=== PATIENT | female | born 1950 | race Hispanic/Latino ===

== ENCOUNTER 2022-04-02 11:22 | Observation (INO) | payer MEDICARE, MEDICAID ==
[2022-04-02] VITALS (18 sets, daily range): BP systolic 114–177; BP diastolic 49–95
[~2022-04-02] VITALS: Ht 172.7 cm; Wt 90.5 kg
[2022-04-02] MEDS ORDERED: DEXTROSE 10%-WATER IV SOLUTION 1,000 ML IV ONE ×3 (11:26→14:00)
[2022-04-02] MEDS ORDERED: DEXTROSE 50%-WATER SYRINGE IV STA ×2 (12:01→14:50)
[2022-04-02] MEDS ORDERED: DEXTROSE 50%-WATER SYRINGE IV ONE ×2 (12:03→14:49)
--- NOTE | 2022-04-02 12:10 | ER.PDOC ---
General Chief Complaint: General Complaint Stated Complaint: LOW BLOOD SUGAR Time seen by MD: 12:00 Source: family Exam Limitations: clinical condition History of Present Illness Initial Comments Patient received subcu insulin but no food after that, became unresponsive, paramedics found her blood sugar to be 20- she responded to D50 water and she had a second episode of loss of consciousness, sugar was low again this time patient was brought to ER Timing/Duration: 4-6 hours Character of AMS: unresponsive Context: [facility], chronic dementia Decreased Ability to Stand: weak Associated Symptoms: recent illness Prior symptoms/Treatment: Similar symptoms previous Past Medical History Medical History: congestive heart failure, diabetes, hypertension Surgical History: no surgical history Social History Alcohol Use: none Drug Use: none Reviewed Nursing Reviewed: Vital Signs, Abn. Noted Review of Systems All Other Systems: Reviewed and Negative Physical Exam General Appearance: lethargic HEENT: no apparent trauma, EOM's intact, no nystagmus, PERRL, ENT inspection nml, pharynx nml, airway intact, oral exam nml Neuro/Psych: nml mood/affect, abnml response to command, disoriented to person, disoriented to time, other Cerebellar: abnml [id number], other Peripheral Exam: weakness Neck: supple, non-tender, no carotid bruit Respiratory: no resp distress, breath sounds nml CVS: reg rate & rhythm, heart sounds nml Abdomen: non-tender, no organomegaly, no distention Skin: color nml, no rash, warm/dry Extremities: non-tender, nml ROM, no pedal edema Results/Orders Results/Orders Orders - SHAGUFTA PEREZ MD Clostridium Difficile Panel (04/02/22 11:48) Cbc With Auto Diff (04/02/22 11:48) Comprehensive Metabolic Panel (04/02/22 11:48) Creatine Kinase (04/02/22 11:48) Creatine Kinase Mb (04/02/22 11:48) Probnp B-Type Fittings Finisher (04/02/22 11:48) PT (04/02/22 11:48) Partial Thromboplastin Time. (04/02/22 11:48) Xr Chest 1v (04/02/22 11:48) Ekg-Routine (04/02/22 11:48) Troponin I High Sensitivity (04/02/22 11:48) Urinalysis (04/02/22 11:59) Lactic Acid(Ml) (04/02/22 11:59) Venous Blood Gas (04/02/22 11:59) Acetone,Serum (Ml) (04/02/22 11:59) Dextrose 50 % In Water (Dextrose 50%-Mojgan (04/02/22 12:01) Dextrose 50 % In Water (Dextrose 50%-Mojgan (04/02/22 12:03) Ct Head Wo Contrast (04/02/22 12:03) Dextrose 10 % In Water (Dextrose 10%-Mojgan (04/02/22 12:30) Ammonia (04/02/22 12:18) Ipratropium/Albuterol Sulfate (Duo 0.5-3 (04/02/22 12:49) Piperacillin Sodium/Tazobactam (Zosyn 4. (04/02/22 13:30) Urine Culture (04/02/22 13:10) Vital Signs Date Time Temp Pulse Resp B/P (MAP) Pulse Ox O2 Delivery O2 Flow Rate FiO2 04/02/22 11: 98.3 51 18 124/66 (85) 100 Room Air* 0 21 04/02/22 11:22 98.3 51 18 100 04/02/22 11: 98.3 51 18 Administered Medications Medications (Trade) Dose Ordered Sig/Neeraj Route PRN Reason Start Time Stop Time Status Last Admin Dose Admin Dextrose 1,000 ml @ 0 mls/hr Q0M ONCE IV 04/02/22 12:30 04/02/22 12:31 UNV 04/02/22 12:14 70 MLS/HR Dextrose (Dextrose 50%-Water Syringe) 50 ml STAT STAT IV 04/02/22 12:01 04/02/22 12:03 DC 04/02/22 12:07 50 ML Laboratory Tests Test 04/02/22 12:15 04/02/22 12:16 04/02/22 13:08 04/02/22 13:10 POC Glucose 160 (70 - 110) H 119 (70 - 110) H White Blood Count 10.1 10^3/uL (4.5-11.0) Red Blood Count 3.73 10^6/uL (4.00-5.20) L Hemoglobin 11.0 g/dL (12.0-15.0) L Hematocrit 33.9 % (36.0-46.0) L Mean Corpuscular Volume 90.9 fL (78-100) Mean Corpuscular Hemoglobin 29.5 pg (26-34) Mean Corpuscular Hemoglobin Concent 32.4 g/dL (33-36.5) L Red Cell Distribution Width 12.2 % (11.5-14.5) Platelet Count 198 10^3/uL (150-400) Mean Platelet Volume 9.4 fL (7.8-11.0) Neutrophils (%) (Auto) 81.5 % (41.0-85.0) Lymphocytes (%) (Auto) 10.7 % (24.0-44.0) L Monocytes (%) (Auto) 5.7 % (5.0-12.0) Neutrophils # (Auto) 8.2 10^3/uL (1.8-7.7) H Lymphocytes # (Auto) 1.08 10^3/uL1 (1.0-4.8) Monocytes # (Auto) 0.6 10^3/uL (0.3-0.8) Absolute Immature Granulocyte (auto 0.02 10^3 u/L (0-2) Absolute Eosinophils (auto) 0.2 10^3/uL (0.0-0.2) Immature Granulocytes % 0.20 % (0.00-0.50) Eosinophils % 1.5 % (0.0-5.0) Basophils % 0.4 % (0.0-0.2) H Basophils # 0.0 10^3/uL (0.0-0.1) Prothrombin Time 10.4 SEC (9.1-11.5) Prothrombin Time INR (Non-Therap) 1.0 Activated Partial Thromboplast Time 26.3 SEC (22.5-33.1) Sodium Level 139 mmol/L (132-145) Potassium Level 3.2 mmol/L (3.6-5.2) L Chloride Level 103.0 mmol/L (96-109) Carbon Dioxide Level 27.3 mmol/L (20.0-32) Anion Gap 11.9 Blood Urea Nitrogen 17 mg/dL (7-18) Creatinine 1.15 mg/dL (0.59-1.40) Estimated GFR () 55.8 (>/=60) Est GFR (CKD-EPI)(Non-Afr Rwandan) 46.1 (>/=60) BUN/Creatinine Ratio 14.0 Glucose Level 174 mg/dL (70-110) H Lactic Acid Level 1.4 mmol/L (0.5-1.9) Calcium Level 8.7 mg/dL (8.4-10.5) Total Bilirubin 0.3 mg/dL (0.2-1.0) Aspartate Amino Transferase (AST) 9 U/L (0-35) Alanine Aminotransferase (ALT) 16 U/L (12-78) Alkaline Phosphatase 95 U/L (50-136) Ammonia 39 umol/L (11-35) H Total Creatine Kinase 24 U/L (26-192) L Creatine Kinase MB 0.5 ng/mL (0.5-3.6) Troponin I High Sensitivity 12 ng/L (0-50) Pro-B-Type Natriuretic Peptide 176 pg/mL (0-125) H Total Protein 5.9 g/dL (6.4-8.2) L Albumin 3.0 g/dL (3.4-5.0) L Globulin 2.9 Albumin/Globulin Ratio 1.034 Acetone, Semi-Quantitative NEGATIVE Urine Collection Type UNKNOWN Urine Color YELLOW Urine Appearance CLOUDY Urine Bilirubin NEGATIVE (NEGATIVE) Urine Ketones NEGATIVE (NEGATIVE) Urine Specific [place] 1.020 (1.005-1.030) Urine pH 6.5 (4.5-8.0) Urine Protein NEGATIVE (NEGATIVE) Urine Urobilinogen 2.0 E.U./dL (0.2) Urine Nitrate POSITIVE (NEGATIVE) H Urine Leukocyte Esterase TRACE (NEGATIVE) H Urine Glucose (Auto)(UA) NEGATIVE (NEGATIVE) Urine Blood NEGATIVE (NEGATIVE) Urine RBC 0-2 RBC/HPF (NONE SEEN) Urine WBC 10-25 WBC/HPF (0-2) H Urine Squamous Epithelial Cells FEW (<=FEW) Urine Bacteria MANY (NONE SEEN) H Consult/PCP Time Consult/PCP Called: 13:33 Consult/PCP: DR BENY MCKINLEY DEPART Departure Time of Disposition: 13:33 Disposition: 02 SHORT TERM HOSPITAL Impression: Primary Impression: Overdose of insulin Additional Impression: Pneumonia Condition: Improved Referrals: PCP,UNKNOWN (PCP) PRIMARY CARE PROVIDER Duration or Time Spent with Pa: 15m Problem Qualifiers SHAGUFTA PEREZ MD Apr 02, 2022 12:10
--- NOTE | 2022-04-02 12:13 | PCM.EKG ---
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
[2022-04-02 12:26] LABS: BASOPHIL % 0.4 % (0.0-0.2); EOSINOPHIL # 0.2 10^3/uL (0.0-0.2); EOSINOPHIL % 1.5 % (0.0-5.0); LYMPHOCYTES # 1.08 10^3/uL1 (1.0-4.8); LYMPHOCYTES % 10.7 % (24.0-44.0); MEAN CORP HGB 29.5 pg (26-34); MONOCYTES # 0.6 10^3/uL (0.3-0.8); MONOCYTES % 5.7 % (5.0-12.0); NEUTROPHIL # 8.2 10^3/uL (1.8-7.7); NEUTROPHILS % 81.5 % (41.0-85.0); PLATELET COUNT 198 10^3/uL (150-400); RED CELL DISTRIBUTION WIDTH 12.2 % (11.5-14.5)
--- NOTE | 2022-04-02 12:45 | DIREP ---
PROCEDURE:CT HEAD OR BRAIN W/O CONTRAST COMPARISON:None. INDICATIONS:Seizure TECHNIQUE:CT images were created without intravenous contrast. FINDINGS: VENTRICLES:The ventricles are normal in size and configuration. CEREBRUM:There are low-density changes in the periventricular white matter CEREBELLUM:Negative. BRAINSTEM:Negative. BASAL CISTERNS:Negative. HEMORRHAGE (Vol L*W*H*.52):No MASS LESION:No ACUTE INFARCT:No SKULL:Normal. SINUSES:Normal. OTHER:None CONCLUSION: 1. No acute abnormalities. 2. Microvascular ischemic white matter changes. Dictated by: Junior Fortune M.D. on 04/02/2022 at 12:41 PM
--- NOTE | 2022-04-02 12:45 | DIREP ---
PROCEDURE:CHEST 1 VIEW COMPARISON:None. INDICATIONS:cp FINDINGS: LUNGS/PLEURA:There are ground-glass and patchy infiltrates in the lungs, most extensive in the left lung although there appear to be a few infiltrates on the right side is well no prior chest radiographs for comparison. The appearance is suspicious for viral pneumonia or multi lobar pneumonia. No effusions. No pneumothorax. VASCULATURE:Unremarkable pulmonary vasculature. CARDIAC:No cardiac silhouette abnormality or cardiomegaly. MEDIASTINUM:No visible mass or adenopathy. BONES:No fracture or visible bony lesion. OTHER:Negative. CONCLUSION: 1. Pulmonary infiltrates concerning for viral pneumonia or multi lobar pneumonia. Dictated by: Chloe Manning MD on 04/02/2022 at 12:42 PM
[2022-04-02] MEDS ORDERED: DUO 0.5-3(2.5) MG/3 ML IH STA (12:49)
[2022-04-02 12:56] LABS: CARBON DIOXIDE 27.3 mmol/L (20.0-32)
[2022-04-02 13:17] LABS: BILIRUBIN,URINE NEGATIVE (NEGATIVE)
--- NOTE | 2022-04-02 13:26 | NUR ---
HOSPITALIST EDP ON PHONE WITH DR SWAN TO DISCUSS NEED OF ADMISSION/PLAN OF CARE.
--- NOTE | 2022-04-02 13:29 | NUR ---
BENY ACCEPTING DR SWAN ACCEPTING PT ICU STATUS FOR HYPOGLYCEMIA, INSULIN OVERDOSE.
[2022-04-02] MEDS ORDERED: ZOSYN 4.5 GM 4.5 GM in NS 100ML 100 ML IV SCH (13:30)
--- NOTE | 2022-04-02 13:30 | NUR ---
BED ASSIGNMENT ICU 6
[2022-04-02] MEDS ORDERED: NS 100ML 100 ML IV ONE (13:34)
--- NOTE | 2022-04-02 16:30 | NUR ---
STATUS PT SITTING UP IN BED, PT FAMILY AT BEDSIDE ASSISTING PT WITH MEAL.
--- NOTE | 2022-04-02 16:47 | NUR ---
admit REPORT GIVEN TO AGAPITO SUP. PT TAKEN VIA STRETCHER IN STABLE CONDITION TO ICU.
--- NOTE | 2022-04-02 17:47 | PCM.HP ---
HISTORY AND PHYSICAL Date of Arrival on Unit: Apr 02, 2022 Chief Complaint AMS and hypoglycemia HPI 72 year old female brought to the ED today for hypoglycemia. [place] is a [place] in [place] who travelled to the area to spend Thanksgiving with family. This morning, pt was given "100 units" of insulin around 0600 today. Daughter did this as it was instructed on the med rec page, pt didn't eat breakfast. Daughter believes the insulin started with an "H" but only insulin noted in chart is that of Lantus, along with glipizide. Pt was given D50 by EMS on initial call and then the pt was doing better and they left. EMS was called again as pt was sweating and with mild AMS. Another D50 was given and pt was brought to the ED. Glucose high of 190 but continued to dip down. Concern that she may fall into hypoglycemia again, pt was admitted to the ICU. Further labs from ED: mild anemia, renal function stable, potassium of 3.2, trop negative CT head in ED with no acute changes, chronic white matter changes noted. X-ray in ED revealed multilobar pneumonia (pt without respiratory distress and on RA). EKG with no acute changes. FULL CODE Allergies NKDA Scheduled Amoxicillin/Potassium Clav (Augmentin 500-125 Tablet), 1 TAB PO BID Polymyxin B Sulfate/Tmp (Polytrim Eye Drops), 1 DROPS BOTH EYES TID Other Pt history Problems Medical Problems: (1) Overdose of insulin Status: Acute ICD Codes: T38.3X1A - Poisoning by insulin and oral hypoglycemic [antidiabetic] drugs, accidental (unintentional), initialencounter SNOMED: 860689364 (2) Pneumonia Status: Acute ICD Codes: J18.9 - Pneumonia, unspecified organism SNOMED: 857665741 Social History Stopped smoking 3 years ago Was previously a heavy EtOH user Denied any illicit drug use hx Lives in [place] Family History Pt denied any ROS Reviewed and negative VITALS EXAM General Appearance: Awake and alert to person, place, date HEENT: no apparent trauma, EOM's intact,conjunctivitis right eye, pharynx nml, airway intact, oral exam nml Neuro/Psych: nml mood/affect, following commands Peripheral Exam: weakness - but family states this is baseline Neck: supple, non-tender, no carotid bruit Respiratory: no resp distress, breath sounds nml CVS: reg rate & rhythm, heart sounds nml Abdomen: non-tender, no organomegaly, no distention Skin: color nml, no rash, warm/dry Extremities: non-tender, nml ROM, no pedal edema LAB/LELO/BBK/PATH Laboratory Tests Test 04/02/22 00:00 04/02/22 12:15 04/02/22 12:16 04/02/22 12:20 Clostridium difficile Screen NEGATIVE Clostridium Difficile Toxin A & B NEGATIVE Influenza Type A Antigen NEGATIVE (NEG) Influenza Type B Antigen NEGATIVE (NEG) SARS-CoV-2 Antigen (Rapid) NEGATIVE (NEGATIVE) Bedside Glucose 160 (70 - 110) White Blood Count 10.1 10^3/uL (4.5-11.0) Red Blood Count 3.73 10^6/uL (4.00-5.20) Hemoglobin 11.0 g/dL (12.0-15.0) Hematocrit 33.9 % (36.0-46.0) Mean Corpuscular Volume 90.9 fL (78-100) Mean Corpuscular Hemoglobin 29.5 pg (26-34) Mean Corpuscular Hemoglobin Concent 32.4 g/dL (33-36.5) Red Cell Distribution Width 12.2 % (11.5-14.5) Platelet Count 198 10^3/uL (150-400) Mean Platelet Volume 9.4 fL (7.8-11.0) Neutrophils (%) (Auto) 81.5 % (41.0-85.0) Lymphocytes (%) (Auto) 10.7 % (24.0-44.0) Monocytes (%) (Auto) 5.7 % (5.0-12.0) Neutrophils # (Auto) 8.2 10^3/uL (1.8-7.7) Lymphocytes # (Auto) 1.08 10^3/uL1 (1.0-4.8) Monocytes # (Auto) 0.6 10^3/uL (0.3-0.8) Absolute Immature Granulocyte (auto 0.02 10^3 u/L (0-2) Absolute Eosinophils (auto) 0.2 10^3/uL (0.0-0.2) Immature Granulocytes % 0.20 % (0.00-0.50) Eosinophils % 1.5 % (0.0-5.0) Basophils % 0.4 % (0.0-0.2) Basophils # 0.0 10^3/uL (0.0-0.1) Prothrombin Time 10.4 SEC (9.1-11.5) Prothrombin Time INR (Non-Therap) 1.0 Activated Partial Thromboplast Time 26.3 SEC (22.5-33.1) Sodium Level 139 mmol/L (132-145) Potassium Level 3.2 mmol/L (3.6-5.2) Chloride Level 103.0 mmol/L (96-109) Carbon Dioxide Level 27.3 mmol/L (20.0-32) Anion Gap 11.9 Blood Urea Nitrogen 17 mg/dL (7-18) Creatinine 1.15 mg/dL (0.59-1.40) Estimated GFR () 55.8 (>/=60) Est GFR (CKD-EPI)(Non-Afr Beninese) 46.1 (>/=60) BUN/Creatinine Ratio 14.0 Glucose Level 174 mg/dL (70-110) Lactic Acid Level 1.4 mmol/L (0.5-1.9) Calcium Level 8.7 mg/dL (8.4-10.5) Total Bilirubin 0.3 mg/dL (0.2-1.0) Aspartate Amino Transf (AST/SGOT) 9 U/L (0-35) Alanine Aminotransferase (ALT/SGPT) 16 U/L (12-78) Alkaline Phosphatase 95 U/L (50-136) Ammonia 39 umol/L (11-35) Total Creatine Kinase 24 U/L (26-192) Creatine Kinase MB 0.5 ng/mL (0.5-3.6) Troponin I High Sensitivity 12 ng/L (0-50) Pro-B-Type Natriuretic Peptide 176 pg/mL (0-125) Total Protein 5.9 g/dL (6.4-8.2) Albumin 3.0 g/dL (3.4-5.0) Globulin 2.9 Albumin/Globulin Ratio 1.034 Acetone, Semi-Quantitative NEGATIVE Bedside Blood Gas Site (LAB) VBG O2 Saturation 81.2 (70-75) Bib Test N/A Venous Blood pH 7.348 (7.32-7.43) Venous Blood pCO2 at Patient Temp 43.1 MMHG (41-51) Bedside Venous pO2 45.0 MMHG (30-50) Venous Blood Base Excess -2.4 Venous Blood Temperature 37 Blood Gas Total Hemoglobin 12.0 % (12.0-16.0) Deoxyhemoglobin 18.0 % (0.0-5.0) Carboxyhemoglobin 4.2 % (0.0-3.9) Methemoglobin 0.3 % (0.00-5.0) Total Oxygen Concentration 13.1 % (13.5-17.5) FiO2 28 % (20-101) Total Carbon Dioxide 24.5 mmol/L (23-27) Bicarbonate 23.2 mmol/L (24-28) Test 04/02/22 13:08 04/02/22 13:10 04/02/22 14:32 04/02/22 15:44 Bedside Glucose 119 (70 - 110) 71 (70 - 110) 157 (70 - 110) Urine Collection Type UNKNOWN Urine Color YELLOW Urine Appearance CLOUDY Urine Bilirubin NEGATIVE (NEGATIVE) Urine Ketones NEGATIVE (NEGATIVE) Urine Specific [place] 1.020 (1.005-1.030) Urine pH 6.5 (4.5-8.0) Urine Protein NEGATIVE (NEGATIVE) Urine Urobilinogen 2.0 E.U./dL (0.2) Urine Nitrate POSITIVE (NEGATIVE) Urine Leukocyte Esterase TRACE (NEGATIVE) Urine Glucose (Auto)(UA) NEGATIVE (NEGATIVE) Urine Blood NEGATIVE (NEGATIVE) Urine RBC 0-2 RBC/HPF (NONE SEEN) Urine WBC 10-25 WBC/HPF (0-2) Urine Squamous Epithelial Cells FEW (<=FEW) Urine Bacteria MANY (NONE SEEN) Test 04/02/22 18:54 04/03/22 00:20 04/03/22 05:00 04/03/22 05:24 Bedside Glucose 149 (70-110) 267 (70-110) 162 (70-110) White Blood Count 7.8 10^3/uL (4.5-11.0) Red Blood Count 3.93 10^6/uL (4.00-5.20) Hemoglobin 11.7 g/dL (12.0-15.0) Hematocrit 34.4 % (36.0-46.0) Mean Corpuscular Volume 87.5 fL (78-100) Mean Corpuscular Hemoglobin 29.8 pg (26-34) Mean Corpuscular Hemoglobin Concent 34.0 g/dL (33-36.5) Red Cell Distribution Width 12.4 % (11.5-14.5) Platelet Count 218 10^3/uL (150-400) Mean Platelet Volume 9.8 fL (7.8-11.0) Neutrophils (%) (Auto) 77.0 % (41.0-85.0) Lymphocytes (%) (Auto) 15.9 % (24.0-44.0) Monocytes (%) (Auto) 4.6 % (5.0-12.0) Neutrophils # (Auto) 6.0 10^3/uL (1.8-7.7) Lymphocytes # (Auto) 1.25 10^3/uL1 (1.0-4.8) Monocytes # (Auto) 0.4 10^3/uL (0.3-0.8) Absolute Immature Granulocyte (auto 0.01 10^3 u/L (0-2) Absolute Eosinophils (auto) 0.2 10^3/uL (0.0-0.2) Immature Granulocytes % 0.10 % (0.00-0.50) Eosinophils % 2.4 % (0.0-5.0) Basophils % 0.1 % (0.0-0.2) Basophils # 0.0 10^3/uL (0.0-0.1) Sodium Level 136 mmol/L (132-145) Potassium Level 3.8 mmol/L (3.6-5.2) Chloride Level 101.0 mmol/L (96-109) Carbon Dioxide Level 25.2 mmol/L (20.0-32) Glucose Level 169 mg/dL (70-110) Blood Urea Nitrogen 13 mg/dL (7-18) Creatinine 0.97 mg/dL (0.59-1.40) Calcium Level 9.1 mg/dL (8.4-10.5) Anion Gap 13.6 Estimated GFR () 67.9 (>/=60) Est GFR (CKD-EPI)(Non-Afr Beninese) 56.1 (>/=60) BUN/Creatinine Ratio 13.0 Magnesium Level 2.0 mg/dL (1.8-2.4) Test 04/03/22 08:58 Bedside Glucose 158 (70-110) Microbiology Date/Time Source Procedure Growth Status 04/02/22 13:10 Urine,Random Aerobic Organism ID Result 1 - Final Complete 04/02/22 13:10 Urine Unknown Urine Culture - Final Complete IMAGING PROCEDURE:CT HEAD OR BRAIN W/O CONTRAST COMPARISON:None. INDICATIONS:Seizure TECHNIQUE:CT images were created without intravenous contrast. FINDINGS: VENTRICLES:The ventricles are normal in size and configuration. CEREBRUM:There are low-density changes in the periventricular white matter CEREBELLUM:Negative. BRAINSTEM:Negative. BASAL CISTERNS:Negative. HEMORRHAGE (Vol L*W*H*.52):No MASS LESION:No ACUTE INFARCT:No SKULL:Normal. SINUSES:Normal. OTHER:None CONCLUSION: 1. No acute abnormalities. 2. Microvascular ischemic white matter changes. Dictated by: Junior Fortune M.D. on 04/02/2022 at 12:41 PM PROCEDURE:CHEST 1 VIEW COMPARISON:None. INDICATIONS:cp FINDINGS: LUNGS/PLEURA:There are ground-glass and patchy infiltrates in the lungs, most extensive in the left lung although there appear to be a few infiltrates on the right side is well no prior chest radiographs for comparison. The appearance is suspicious for viral pneumonia or multi lobar pneumonia. No effusions. No pneumothorax. VASCULATURE:Unremarkable pulmonary vasculature. CARDIAC:No cardiac silhouette abnormality or cardiomegaly. MEDIASTINUM:No visible mass or adenopathy. BONES:No fracture or visible bony lesion. OTHER:Negative. CONCLUSION: 1. Pulmonary infiltrates concerning for viral pneumonia or multi lobar pneumonia. Dictated by: Chloe Manning MD on 04/02/2022 at 12:42 PM ASSESSMENT/PLAN Seeking home/NH doses of medications. Hypoglycemia - D10 IV at this time (75ml/hr). Glucose q1h, BMP q4h, Sliding scale as needed HTN - monitor and add medications as needed. UTI - Zosyn in ED, pending CTX. Rocephin now Pneumonia - Zosyn in ED, Rocephin now CHF - BNP of 176. Lasix 20mg PO qD with potassium. Coreg with holding parameters. monitor I/Os Hypokalemia - replace with oral at this time and monitor with BMPs Conjunctivitis - polymyxin, monitor HLD - rosuvastatin Pain - tylenol, tramadol, morphine Nausea - zofran GI - protonix DVT - SCDs and Lovenox BENY,TRISTA R MD Apr 02, 2022 17:47
[2022-04-02] MEDS ORDERED: LOVENOX SQ SCH (18:00)
[2022-04-02] MEDS ORDERED: APRESOLINE IV PRN (18:00)
[2022-04-02] MEDS ORDERED: ZOFRAN IV PRN (18:00)
[2022-04-02] MEDS ORDERED: ULTRAM PO PRN (18:00)
[2022-04-02] MEDS ORDERED: MORPHINE SULFATE IV PRN (18:00)
[2022-04-02] MEDS ORDERED: TYLENOL PO PRN (18:00)
[2022-04-02] MEDS ORDERED: DEXTROSE 50%-WATER SYRINGE IV PRN (19:30)
[2022-04-02] MEDS: NEURONTIN PO SCH (20:38)
[2022-04-02] MEDS: COREG PO SCH (20:40)
[2022-04-02] MEDS ORDERED: CRESTOR PO SCH (21:00)
[2022-04-02] MEDS: DUO 0.5-3(2.5) MG/3 ML IH SCH (21:00)
[2022-04-02] MEDS ORDERED: POLYTRIM EYE ONE (21:01)
[2022-04-02] MEDS: POLYTRIM EYE BOTH EYES SCH (21:04)
[2022-04-03] VITALS (45 sets, daily range): BP systolic 107–152; BP diastolic 47–75
[2022-04-03] MEDS: DUO 0.5-3(2.5) MG/3 ML IH SCH ×3 (01:57→09:02)
[2022-04-03 05:47] LABS: BASOPHIL % 0.1 % (0.0-0.2); EOSINOPHIL # 0.2 10^3/uL (0.0-0.2); EOSINOPHIL % 2.4 % (0.0-5.0); LYMPHOCYTES # 1.25 10^3/uL1 (1.0-4.8); LYMPHOCYTES % 15.9 % (24.0-44.0); MEAN CORP HGB 29.8 pg (26-34); MONOCYTES # 0.4 10^3/uL (0.3-0.8); MONOCYTES % 4.6 % (5.0-12.0); PLATELET COUNT 218 10^3/uL (150-400); RED CELL DISTRIBUTION WIDTH 12.4 % (11.5-14.5)
[2022-04-03 06:24] LABS: CARBON DIOXIDE 25.2 mmol/L (20.0-32)
[2022-04-03] MEDS ORDERED: HUMALOG SQ SCH (08:00)
[2022-04-03] MEDS ORDERED: AMOX1TAB60 PO (08:53)
[2022-04-03] MEDS ORDERED: POLY10DR BOTH EYES (08:53)
[2022-04-03] MEDS ORDERED: KLOR-CON 10 PO SCH (09:00)
[2022-04-03] MEDS ORDERED: LASIX PO SCH (09:00)
[2022-04-03] MEDS ORDERED: PROTONIX IV IV SCH (09:00)
[2022-04-03] MEDS ORDERED: ROCEPHIN 1,000 MG in NS 100ML 100 ML IV SCH (09:00)
[2022-04-03] MEDS: POLYTRIM EYE BOTH EYES SCH (09:00)
[2022-04-03] MEDS ORDERED: ROCEPHIN ONE (09:23)
[2022-04-03] MEDS ORDERED: NS 100ML 100 ML IV ONE (09:23)
[2022-04-03] MEDS: NEURONTIN PO SCH (09:28)
[2022-04-03] MEDS: COREG PO SCH (09:29)
[2022-04-03] MEDS ORDERED: MYSOLINE ONE (10:20)
[2022-04-03] MEDS ORDERED: ZOLOFT ONE (10:21)
--- NOTE | 2022-04-03 11:30 | NUR ---
DISCHARGE PATIENT BEING DISCHARGED HOME AT THIS TIME IN STABLE CONDITION. PRESCRIPTIONS WERE CALLED INTO [facility] HERE [place], [place]. PATIENT DENIES NEEDING ANY ADDITIONAL RESOURCES AT THIS TIME. ASSISTED PATIENT DOWNSTAIRS TO PRIVATE AUTO. RELINQUISHED CARE FOR PATIENT AT THIS TIME.
--- NOTE | 2022-04-13 15:50 | PRM.DC ---
Subjective Subjective Date of Discharge: Apr 03, 2022 Time of Request to Discharge: 12:00 Subjective Pt seen and examined this morning in the ICU. She reported to feeling well this morning and is eager to leave hospital EL. No acute events overnight, glucose stable. 72 year old female brought to the ED today for hypoglycemia. She is a [place] resident in [place] who travelled to the area to spend Thanksgiving with kd montes. This morning, pt was given "100 units" of insulin around 0600 today. Daughter did this as it was instructed on the med rec page, pt didn't eat breakfast. Daughter believes the insulin started with an "H" but only insulin noted in chart is that of Lantus, along with glipizide. Pt was given D50 by EMS on initial call and then the pt was doing better and they left. EMS was called again as pt was sweating and with mild AMS. Another D50 was given and pt was brought to the ED. Glucose high of 190 but continued to dip down. Concern that she may fall into hypoglycemia again, pt was admitted to the ICU. Further labs from ED: mild anemia, renal function stable, potassium of 3.2, trop negative CT head in ED with no acute changes, chronic white matter changes noted. X-ray in ED revealed multilobar pneumonia (pt without respiratory distress and on RA). EKG with no acute changes. dextrose IV stopped and glucose has remained stable. Discussed with the family the correct dosing method for the pt at home with her insulin. She is to be discharged at this time with family. Exam Vital Signs Temp 98.3F Pulse 51bpm Resp 18 BP 124/66 SpO2 100 % on RA General Appearance: Awake and alert to person, place, date HEENT: no apparent trauma, EOM's intact,conjunctivitis right eye, pharynx nml, airway intact, oral exam nml Neuro/Psych: nml mood/affect, following commands Peripheral Exam: weakness - but family states this is baseline Neck: supple, non-tender, no carotid bruit Respiratory: no resp distress, breath sounds nml CVS: reg rate & rhythm, heart sounds nml Abdomen: non-tender, no organomegaly, no distention Skin: color nml, no rash, warm/dry Extremities: non-tender, nml ROM, no pedal edema VTE VTE Risk Total Score: >5 VTE Risk Score VTE Risk: Score 0-1 = Low Risk (Aggressive mobilization; early ambulation; no VTE prophylaxis required) Score 2: Moderate Risk (Intermittent/Pneumatic Compression Device OR Lovenox/Heparin/Coumadin) Score 3-4: High Risk (Intermittent/Pneumatic Compression Device AND Lovenox/Heparin/Coumadin) Score > or =5: Highest Risk (Intermittent/Pneumatic Compression Device AND Lovenox/Heparin/Coumadin) Objective All Results(Lab/Rad) Laboratory Tests Test 04/02/22 00:00 04/02/22 12:15 04/02/22 12:16 04/02/22 12:20 Clostridium difficile Screen NEGATIVE Clostridium Difficile Toxin A & B NEGATIVE Influenza Type A Antigen NEGATIVE (NEG) Influenza Type B Antigen NEGATIVE (NEG) SARS-CoV-2 Antigen (Rapid) NEGATIVE (NEGATIVE) Bedside Glucose 160 (70 - 110) White Blood Count 10.1 10^3/uL (4.5-11.0) Red Blood Count 3.73 10^6/uL (4.00-5.20) Hemoglobin 11.0 g/dL (12.0-15.0) Hematocrit 33.9 % (36.0-46.0) Mean Corpuscular Volume 90.9 fL (78-100) Mean Corpuscular Hemoglobin 29.5 pg (26-34) Mean Corpuscular Hemoglobin Concent 32.4 g/dL (33-36.5) Red Cell Distribution Width 12.2 % (11.5-14.5) Platelet Count 198 10^3/uL (150-400) Mean Platelet Volume 9.4 fL (7.8-11.0) Neutrophils (%) (Auto) 81.5 % (41.0-85.0) Lymphocytes (%) (Auto) 10.7 % (24.0-44.0) Monocytes (%) (Auto) 5.7 % (5.0-12.0) Neutrophils # (Auto) 8.2 10^3/uL (1.8-7.7) Lymphocytes # (Auto) 1.08 10^3/uL1 (1.0-4.8) Monocytes # (Auto) 0.6 10^3/uL (0.3-0.8) Absolute Immature Granulocyte (auto 0.02 10^3 u/L (0-2) Absolute Eosinophils (auto) 0.2 10^3/uL (0.0-0.2) Immature Granulocytes % 0.20 % (0.00-0.50) Eosinophils % 1.5 % (0.0-5.0) Basophils % 0.4 % (0.0-0.2) Basophils # 0.0 10^3/uL (0.0-0.1) Prothrombin Time 10.4 SEC (9.1-11.5) Prothrombin Time INR (Non-Therap) 1.0 Activated Partial Thromboplast Time 26.3 SEC (22.5-33.1) Sodium Level 139 mmol/L (132-145) Potassium Level 3.2 mmol/L (3.6-5.2) Chloride Level 103.0 mmol/L (96-109) Carbon Dioxide Level 27.3 mmol/L (20.0-32) Anion Gap 11.9 Blood Urea Nitrogen 17 mg/dL (7-18) Creatinine 1.15 mg/dL (0.59-1.40) Estimated GFR () 55.8 (>/=60) Est GFR (CKD-EPI)(Non-Afr Irish) 46.1 (>/=60) BUN/Creatinine Ratio 14.0 Glucose Level 174 mg/dL (70-110) Lactic Acid Level 1.4 mmol/L (0.5-1.9) Calcium Level 8.7 mg/dL (8.4-10.5) Total Bilirubin 0.3 mg/dL (0.2-1.0) Aspartate Amino Transf (AST/SGOT) 9 U/L (0-35) Alanine Aminotransferase (ALT/SGPT) 16 U/L (12-78) Alkaline Phosphatase 95 U/L (50-136) Ammonia 39 umol/L (11-35) Total Creatine Kinase 24 U/L (26-192) Creatine Kinase MB 0.5 ng/mL (0.5-3.6) Troponin I High Sensitivity 12 ng/L (0-50) Pro-B-Type Natriuretic Peptide 176 pg/mL (0-125) Total Protein 5.9 g/dL (6.4-8.2) Albumin 3.0 g/dL (3.4-5.0) Globulin 2.9 Albumin/Globulin Ratio 1.034 Acetone, Semi-Quantitative NEGATIVE Bedside Blood Gas Site (LAB) VBG O2 Saturation 81.2 (70-75) Bib Test N/A Venous Blood pH 7.348 (7.32-7.43) Venous Blood pCO2 at Patient Temp 43.1 MMHG (41-51) Bedside Venous pO2 45.0 MMHG (30-50) Venous Blood Base Excess -2.4 Venous Blood Temperature 37 Blood Gas Total Hemoglobin 12.0 % (12.0-16.0) Deoxyhemoglobin 18.0 % (0.0-5.0) Carboxyhemoglobin 4.2 % (0.0-3.9) Methemoglobin 0.3 % (0.00-5.0) Total Oxygen Concentration 13.1 % (13.5-17.5) FiO2 28 % (20-101) Total Carbon Dioxide 24.5 mmol/L (23-27) Bicarbonate 23.2 mmol/L (24-28) Test 04/02/22 13:08 04/02/22 13:10 04/02/22 14:32 04/02/22 15:44 Bedside Glucose 119 (70 - 110) 71 (70 - 110) 157 (70 - 110) Urine Collection Type UNKNOWN Urine Color YELLOW Urine Appearance CLOUDY Urine Bilirubin NEGATIVE (NEGATIVE) Urine Ketones NEGATIVE (NEGATIVE) Urine Specific Tensed 1.020 (1.005-1.030) Urine pH 6.5 (4.5-8.0) Urine Protein NEGATIVE (NEGATIVE) Urine Urobilinogen 2.0 E.U./dL (0.2) Urine Nitrate POSITIVE (NEGATIVE) Urine Leukocyte Esterase TRACE (NEGATIVE) Urine Glucose (Auto)(UA) NEGATIVE (NEGATIVE) Urine Blood NEGATIVE (NEGATIVE) Urine RBC 0-2 RBC/HPF (NONE SEEN) Urine WBC 10-25 WBC/HPF (0-2) Urine Squamous Epithelial Cells FEW (<=FEW) Urine Bacteria MANY (NONE SEEN) Test 04/02/22 18:54 04/03/22 00:20 04/03/22 05:00 04/03/22 05:24 Bedside Glucose 149 (70-110) 267 (70-110) 162 (70-110) White Blood Count 7.8 10^3/uL (4.5-11.0) Red Blood Count 3.93 10^6/uL (4.00-5.20) Hemoglobin 11.7 g/dL (12.0-15.0) Hematocrit 34.4 % (36.0-46.0) Mean Corpuscular Volume 87.5 fL (78-100) Mean Corpuscular Hemoglobin 29.8 pg (26-34) Mean Corpuscular Hemoglobin Concent 34.0 g/dL (33-36.5) Red Cell Distribution Width 12.4 % (11.5-14.5) Platelet Count 218 10^3/uL (150-400) Mean Platelet Volume 9.8 fL (7.8-11.0) Neutrophils (%) (Auto) 77.0 % (41.0-85.0) Lymphocytes (%) (Auto) 15.9 % (24.0-44.0) Monocytes (%) (Auto) 4.6 % (5.0-12.0) Neutrophils # (Auto) 6.0 10^3/uL (1.8-7.7) Lymphocytes # (Auto) 1.25 10^3/uL1 (1.0-4.8) Monocytes # (Auto) 0.4 10^3/uL (0.3-0.8) Absolute Immature Granulocyte (auto 0.01 10^3 u/L (0-2) Absolute Eosinophils (auto) 0.2 10^3/uL (0.0-0.2) Immature Granulocytes % 0.10 % (0.00-0.50) Eosinophils % 2.4 % (0.0-5.0) Basophils % 0.1 % (0.0-0.2) Basophils # 0.0 10^3/uL (0.0-0.1) Sodium Level 136 mmol/L (132-145) Potassium Level 3.8 mmol/L (3.6-5.2) Chloride Level 101.0 mmol/L (96-109) Carbon Dioxide Level 25.2 mmol/L (20.0-32) Glucose Level 169 mg/dL (70-110) Blood Urea Nitrogen 13 mg/dL (7-18) Creatinine 0.97 mg/dL (0.59-1.40) Calcium Level 9.1 mg/dL (8.4-10.5) Anion Gap 13.6 Estimated GFR () 67.9 (>/=60) Est GFR (CKD-EPI)(Non-Afr Irish) 56.1 (>/=60) BUN/Creatinine Ratio 13.0 Magnesium Level 2.0 mg/dL (1.8-2.4) Test 04/03/22 08:58 Bedside Glucose 158 (70-110) Microbiology Date/Time Source Procedure Growth Status 04/02/22 13:10 Urine,Random Aerobic Organism ID Result 1 - Final Complete 04/02/22 13:10 Urine Unknown Urine Culture - Final Complete Medication Reconciliation Scheduled Amoxicillin/Potassium Clav (Augmentin 500-125 Tablet), 1 TAB PO BID Polymyxin B Sulfate/Tmp (Polytrim Eye Drops), 1 DROPS BOTH EYES TID Plan Assessment 72 year old female admitted for accidental insulin overdose. She is a [place] resident in [place] and was visiting family during the holidays and believed to be given 100 units of long acting. She was started on D10 and glucose finally normalized and she has been of IV dextrose and stable. Also, found to have multilobar pneumonia on CXR without any symptoms - treated with abx. Plan Hypoglycemia - improved, correct dosing and regimen discussed with daughter HTN - home regimen. UTI - Augmentin Pneumonia - Augmentin, precautions discussed CHF - Cont home regimen Hypokalemia - replaced Conjunctivitis - polymyxin HLD - rosuvastatin TRISTA SWAN MD Apr 13, 2022 15:50
== END 2022-04-03 11:30 | disposition home or self-care (01) ==
LOC: ER 11:22 → EDBD 11:22 → ICU 13:32 → UNDOADMOB 13:32 → INTOOBSV 13:32 → ICU 13:32 → UNDODISOB 04-03 11:30
PROVIDERS: ADMIT Student in an Organized Health Care Education/Training Program; ATTEND Student in an Organized Health Care Education/Training Program
DX: T38.3X1A Poisoning by insulin and oral hypoglycemic [antidiabetic] drugs, accidental (unintentional), initial encounter (principal); Z20.822 Contact with and (suspected) exposure to COVID-19; E11.649 Type 2 diabetes mellitus with hypoglycemia without coma; N39.0 Urinary tract infection, site not specified; I11.0 Hypertensive heart disease with heart failure; I50.9 Heart failure, unspecified; J18.9 Pneumonia, unspecified organism; E87.6 Hypokalemia; H10.9 Unspecified conjunctivitis; E78.5 Hyperlipidemia, unspecified; Z79.899 Other long term (current) drug therapy
CPT/HCPCS: 96372; 96365; 96361 ×2; 96375 ×2; 96376; 99285; 87086; 71045; 70450; 87426; 80053; 85025 ×2; 82948 ×8; 36415 ×2; 84484; 83605; 82140; 87804 ×2; 82553; 81001; 83880; 82010; 82550; 85610; 85730; 87077; 87230 ×2; 93005; 82803; 96367; 80048; 83735; 94640 ×3; G0378 ×20; J2543; J7042 ×2; J1650; J3490; J0696 ×2; C9113